=== PATIENT | female | born 2000 | race Two or more races ===

== ENCOUNTER 2018-10-13 11:50 | Observation (INO) | payer OTHER ==
[2018-10-13] MEDS ORDERED: PREN-96 PO (12:22)
== END 2018-10-13 14:05 | disposition home or self-care (01) | DRG 832 ==
LOC: LDRP 11:50
PROVIDERS: ADMIT Specialist; ATTEND Specialist
DX: O48.0 Post-term pregnancy (principal); O41.03X0 Oligohydramnios, third trimester, not applicable or unspecified; O00.01 Abdominal pregnancy with intrauterine pregnancy; Z3A.40 40 weeks gestation of pregnancy
CPT/HCPCS: 59025; 76818; 81002; G0378

== ENCOUNTER 2018-10-13 19:19 | Inpatient (IN) | payer SELFPAY ==
[~2018-10-13] VITALS: Ht 157.5 cm; Wt 61.7 kg
[~2018-10-13 19:19] MED LIST: PREN-96 PO
[2018-10-13] MEDS ORDERED: LACT. RINGERS/OXYTOCIN 20UNITS 1,000 ML IV SCH (19:29)
[2018-10-13] MEDS ORDERED: NALBUPHINE HCL 10 MG/1ml INJECTION IV PRN (19:30)
[2018-10-13] MEDS ORDERED: CARBOPROST TROMETHAMINE 250 MCG/1ML VIAL IM PRN (19:30)
[2018-10-13] MEDS ORDERED: METHYLERGONOVINE MALEATE 0.2 MG/ML AMP IM PRN (19:30)
[2018-10-13] MEDS ORDERED: LIDOCAINE 2%HCL (LOCAL ANESTH.) INJ 20ML MDV ID ONE (19:30)
[2018-10-13] MEDS ORDERED: PHISODERM TOP SOLN 240ML BTL TOP PRN (19:30)
[2018-10-13 20:19] LABS: Basophils # (auto) 0 uL; Basophils % (auto) 0.3 % (0.0-2.0); Eosinophils # (auto) 0 uL; Eosinophils % (auto) 0.6 % (0.0-7.0); Hematocrit 34.7 % (36.0-46.0); Hemoglobin 12.2 g/dL (12.2-16.2); Lymphocytes # (auto) 1.4 uL; Lymphocytes % (auto) 20.3 % (10.0-50.0); Mean Corpuscular Hemoglobin 33.1 pg (28.0-32.0); Mean Corpuscular Hgb Conc. 35.2 g/dL (32.0-36.0); Mean Corpuscular Volume 94.1 fL (80.0-100.0); Monocytes # (auto) 0.7 uL; Monocytes % (auto) 9.2 % (0.0-12.0); Neutrophils % (auto) 69.6 % (37.0-80.0); Nucleated Red Blood Cells % 0.1 %; Platelet Count (auto) 191 10^3/uL (140-450); Red Blood Cells 3.68 10^6/uL (4.0-5.20); White Blood Cell 7.1 10^3/uL (4.4-10.8)
[2018-10-13 20:22] LABS: Urine Bacteria NONE SEEN /hpf (None Seen); Urine Blood Negative /uL (Negative); Urine Mucus FEW (None Seen); Urine Specific Gravity 1.034 (1.001-1.035); Urine WBC 1 /hpf (0 - 5)
[2018-10-13 20:31] LABS: Alcohol, Urine < 3.0 mg/dL (0-5); Amphetamine Screen, Urine NEGATIVE (NEGATIVE); Barbiturate Scree,Urine NEGATIVE (NEGATIVE); Benzodiazephine Screen, Urine NEGATIVE (NEGATIVE); Cannabinoid Screen, Urine NEGATIVE (NEGATIVE); Cocaine Screen, Urine NEGATIVE (NEGATIVE); Opiate Scree,Urine NEGATIVE (NEGATIVE); Phencyclidine Screen, Urine NEGATIVE (NEGATIVE)
[2018-10-13 20:33] LABS: Albumin 2.8 g/dL (3.4-5.0); BUN/Creatinine Ratio 16.4; Calcium 8.5 mg/dL (8.5-10.1); INR 0.87 (0.9-1.15); Partial Thromboplastin Time 26.7 sec (23.78-33.04); Potassium 3.8 mmol/L (3.5-5.1); Prothrombin Time 9.4 sec (9.27-12.13)
[2018-10-13 20:35] LABS: Bilirubin, Total 0.2 mg/dL (0.2-1.0); Total Protein 6.5 g/dL (6.4-8.2)
[2018-10-13] MEDS: LACTATED RINGER'S 1,000 ML IV SCH (22:06)
[2018-10-14] MEDS ORDERED: BUTORPHANOL TARTRATE 2 MG/1 ML VIAL ONE (02:45)
[2018-10-14] MEDS: BUTORPHANOL TARTRATE 2 MG/1 ML VIAL IV PRN ×2 (02:47→09:49)
[2018-10-14] MEDS ORDERED: LACT. RINGERS/OXYTOCIN 20UNITS 1,000 ML IV SCH (07:35)
[2018-10-14] MEDS ORDERED: TERBUTALINE SULFATE 1 MG/ML 1ML VIAL SC PRN (07:45)
[2018-10-14] MEDS: LACTATED RINGER'S 1,000 ML IV SCH ×2 (08:19→13:07)
[2018-10-14] MEDS ORDERED: PROMETHAZINE HCL 25 MG/ML 1ML IV PRN (09:30)
[2018-10-14] MEDS: DERMOPLAST 60ML BOTTLE TOP PRN (09:59)
[2018-10-14] MEDS: WITCH HAZEL-GLYCERIN PAD TOP PRN (09:59)
[2018-10-14] MEDS ORDERED: LACTATED RINGER'S 1,000 ML IV ONE (12:17)
[2018-10-14] MEDS ORDERED: ePHEDrine SULFATE 50 MG/ML AMP IV ONE ×2 (12:30→13:30)
[2018-10-14] MEDS ORDERED: fentaNYL W ROPIVACAINE 150 ML EPI SCH ×2 (12:30→13:30)
[2018-10-14] MEDS ORDERED: SODIUM CHLORIDE 0.9% 500 ML IV PRN (13:24)
[2018-10-14] MEDS ORDERED: NALOXONE HCL 0.4 MG/ML VIAL IV ONE (13:30)
--- NOTE | 2018-10-14 17:05 | NUR ---
Ambulation: Patient OOB with standby assistance by RN. Patient ambulated to bathroom with steady gait. Patient able to void without difficulty. Pericare teaching provided with returned demonstration by patient. Clean gown provided and bed linen changed. Patient ambulated back to bed with steady gait and no distress noted.
[2018-10-14 17:36] VITALS: BP 130/78
--- NOTE | 2018-10-14 17:45 | NUR ---
Called Dr Pittman to report pt fever; orders received to give Tylenol 500 mg Q4 PRN; Ancef 1gm Q8. Orders will be carried out.
[2018-10-14] MEDS ORDERED: ACETAMINOPHEN 500 MG TAB PO PRN (18:00)
[2018-10-14] MEDS: ceFAZolin 1GM/50ML 50 ML IV SCH (18:02)
[2018-10-14 19:00] VITALS: BP 99/58
[2018-10-14] MEDS ORDERED: IBUPROFEN 600 MG TAB PO PRN (19:00)
[2018-10-14] MEDS: ACETAMINOPHEN 325 MG TAB PO PRN (20:13)
[2018-10-14 23:00] VITALS: BP 100/58
[2018-10-15] MEDS: DERMOPLAST 60ML BOTTLE TOP PRN (01:20)
[2018-10-15] MEDS: WITCH HAZEL-GLYCERIN PAD TOP PRN (01:20)
[2018-10-15] MEDS: ceFAZolin 1GM/50ML 50 ML IV SCH ×2 (01:21→10:16)
[2018-10-15] MEDS: ACETAMINOPHEN 325 MG TAB PO PRN (01:22)
[2018-10-15 03:00] VITALS: BP 101/55
[2018-10-15 04:06] LABS: RPR Non Reactive (Non Reactive)
[2018-10-15 07:19] VITALS: BP 101/62
[2018-10-15] MEDS ORDERED: DOCUSATE CALCIUM 240 MG CAP PO SCH (10:00)
[2018-10-15 11:39] VITALS: BP 98/56
--- NOTE | 2018-10-15 13:30 | NUR ---
Dr. Pittman updated on pt status, Vital signs reviewed, Informed that pt is requesting discontinuation of IV. Orders received to dc ancef order and dc IV per pt request.
[2018-10-15 15:00] VITALS: BP 100/69
--- NOTE | 2018-10-15 15:34 | NUR ---
IV DC'd catheter intact, pressure dressing applied and is clean and dry.
[2018-10-15] MEDS ORDERED: ceFAZolin 1GM/50ML 50 ML IV SCH (17:30)
[2018-10-15 19:00] VITALS: BP 116/74
[2018-10-15 23:30] VITALS: BP 121/79
[2018-10-16 03:20] VITALS: BP 123/74
[2018-10-16 06:55] VITALS: BP 108/70
[2018-10-16 10:32] VITALS: BP 109/60
--- NOTE | 2018-10-16 10:33 | NUR ---
Discharge: Discharge instructions given as ordered. Pt encouraged to follow up with [facility] as instructed. All questions and concerns addressed. Patient verbalized understanding. Medication reconciliation completed and copy given to patient. Patient encouraged to prepare to depart unit.
--- NOTE | 2018-10-16 10:45 | NUR ---
Discharge: Patient taken to vehicle via ambulated with all personal belongings, accompanied by staff and family member. No distress noted at time of departure, no adverse changes in status since initial assessment.
== END 2018-10-16 10:45 | disposition home or self-care (01) | DRG 806 ==
LOC: LDRP 19:19
PROVIDERS: ADMIT Specialist; ATTEND Specialist
PROC: 10E0XZZ Delivery of Products of Conception, External Approach (ICD-10-PCS; principal; 2018-10-14)
PROC: 0KQM0ZZ Repair Perineum Muscle, Open Approach (ICD-10-PCS; 2018-10-14)
PROC: 3E0R3BZ Introduction of Anesthetic Agent into Spinal Canal, Percutaneous Approach (ICD-10-PCS; 2018-10-14)
PROC: 00HU33Z Insertion of Infusion Device into Spinal Canal, Percutaneous Approach (ICD-10-PCS; 2018-10-14)
PROC: 10H07YZ Insertion of Other Device into Products of Conception, Via Natural or Artificial Opening (ICD-10-PCS; 2018-10-14)
DX: O77.0 Labor and delivery complicated by meconium in amniotic fluid (principal); O41.03X0 Oligohydramnios, third trimester, not applicable or unspecified; Z37.0 Single live birth; Z3A.40 40 weeks gestation of pregnancy; O70.1 Second degree perineal laceration during delivery
CPT/HCPCS: 36415; 51702; 59025; 59409; 62282; 80053; 80307; 81001; 81002; 85025; 85610; 85730; 86592; 86850; 86900; 86901; 96365; 96366; 96374; 96375; C1726; G0378; J0690; J2590; J3010

== ENCOUNTER 2020-02-09 19:10 | Emergency (ER) | payer SELFPAY ==
[~2020-02-09] VITALS: Ht 157.5 cm; Wt 52.2 kg
[2020-02-09 20:06] LABS: Basophils # (auto) 0 10 ^3/uL (0-0.2); Basophils % (auto) 0.4 % (0.0-2.0); Eosinophils # (auto) 0 10 ^3/uL (0-0.8); Eosinophils % (auto) 0.3 % (0.0-7.0); Hematocrit 44.1 % (36.0-46.0); Hemoglobin 15.3 g/dL (12.2-16.2); Lymphocytes # (auto) 1.9 10 ^3/uL (0.4-5.4); Lymphocytes % (auto) 19.4 % (10.0-50.0); Mean Corpuscular Hemoglobin 30.5 pg (28.0-32.0); Mean Corpuscular Hgb Conc. 34.7 g/dL (32.0-36.0); Mean Corpuscular Volume 87.9 fL (80.0-100.0); Monocytes # (auto) 0.5 10 ^3/uL (0-1.3); Monocytes % (auto) 4.6 % (0.0-12.0); Neutrophils # (auto) 7.5 10 ^3/uL (1.6-8.6); Neutrophils % (auto) 75.3 % (37.0-80.0); Platelet Count (auto) 278 10^3/uL (140-450); Red Blood Cells 5.02 10^6/uL (4.0-5.20); Red Cell Distribution Width 13.5 % (11.8-14.3)
[2020-02-09 20:20] LABS: Albumin 3.5 g/dL (3.4-5.0); Calcium 8.6 mg/dL (8.5-10.1); Potassium 3.8 mmol/L (3.5-5.1)
[2020-02-09 20:23] LABS: BUN/Creatinine Ratio 16.4; Bilirubin, Total 0.3 mg/dL (0.2-1.0); Total Protein 8.6 g/dL (6.4-8.2)
[2020-02-09 20:27] LABS: Urine Bacteria NONE SEEN /hpf (None Seen); Urine Blood 1+ /uL (Negative); Urine Mucus FEW (None Seen); Urine Specific Gravity 1.029 (1.001-1.035); Urine WBC 3 /hpf (0 - 5)
[2020-02-09 20:30] LABS: Partial Thromboplastin Time 28.5 sec (23.0-31.2)
[2020-02-09] MEDS ORDERED: IOHEXOL 300 MG/ML 100ML BOTTLE IJ ONE (21:44)
[2020-02-10 01:51] VITALS: BP 104/68
== END 2020-02-10 02:19 | disposition home or self-care (01) ==
LOC: ER 19:10
DX: K59.00 Constipation, unspecified (principal)
CPT/HCPCS: 36415; 74177; 76705; 80053; 81001; 81025; 85025; 85610; 85730; 99285; Q9967

== ENCOUNTER 2023-02-21 22:01 | Emergency (ER) | payer SELFPAY ==
[~2023-02-21] VITALS: Ht 154.9 cm; Wt 73.0 kg
[2023-02-21] MEDS ORDERED: ONDANSETRON ODT 4 MG TAB PO ONE (23:00)
[2023-02-21] MEDS ORDERED: MECLIZINE HCL 25 MG TAB PO ONE (23:00)
[2023-02-21 23:19] LABS: Basophils # (auto) 0.1 10 ^3/uL (0-0.2); Basophils % (auto) 0.5 % (0.0-2.0); Eosinophils # (auto) 0 10 ^3/uL (0-0.8); Eosinophils % (auto) 0.1 % (0.0-7.0); Hematocrit 43.3 % (36.0-46.0); Hemoglobin 15.3 g/dL (12.2-16.2); Lymphocytes # (auto) 2.7 10 ^3/uL (0.4-5.4); Lymphocytes % (auto) 23.6 % (10.0-50.0); Mean Corpuscular Hemoglobin 31.4 pg (28.0-32.0); Mean Corpuscular Hgb Conc. 35.3 g/dL (32.0-36.0); Monocytes # (auto) 0.6 10 ^3/uL (0-1.3); Neutrophils # (auto) 8.2 10 ^3/uL (1.6-8.6); Neutrophils % (auto) 70.8 % (37.0-80.0); Nucleated Red Blood Cells % 0.3 %; Red Blood Cells 4.87 10^6/uL (4.0-5.20); White Blood Cell 11.6 10^3/uL (4.4-10.8)
[2023-02-21 23:37] LABS: Urine Bacteria NONE SEEN /hpf (None Seen); Urine Blood 2+ /uL (Negative); Urine Clarity HAZY (Clear); Urine Color Yellow (Yellow); Urine Hyaline Cast FEW /lpf (0 - 2); Urine Mucus FEW (None Seen); Urine Protein, UAD TRACE (Negative); Urine Specific Gravity 1.031 (1.001-1.035); Urine WBC 10 /hpf (0 - 5); Urine pH 5.5 (5.0-8.0)
[2023-02-21 23:39] LABS: Alanine Aminotransferase 120 U/L (7-40); Alkaline Phosphatase 90 U/L (46-116); Anion Gap 9 (5-15); Aspartate Aminotransferase 40 U/L (13-40); BUN/Creatinine Ratio 12.4 (10.0-20.0); Bilirubin, Total 0.8 mg/dL (0.2-1.0); Blood Urea Nitrogen 11 mg/dL (9-23); Calcium 9.6 mg/dL (8.7-10.4); Carbon Dioxide 25 mmol/L (20-30); Chloride 102 mmol/L (98-107); Glucose 90 mg/dL (74-106); Potassium 3.9 mmol/L (3.5-5.1); Sodium 136 mmol/L (136-145); Total Protein 8.5 g/dL (5.7-8.2)
[2023-02-22 00:06] LABS: Rapid Influenza A Negative (Negative); Rapid Influenza B Negative (Negative)
[2023-02-22 00:07] LABS: COVID19 ANTIGEN SOFIA FIA NEGATIVE (NEGATIVE)
[2023-02-22] MEDS ORDERED: MECL1TAB42 PO (00:37)
[2023-02-22] MEDS ORDERED: ZOFR4T PO (00:37)
[2023-02-22] MEDS ORDERED: NITR-87 PO (00:37)
[2023-02-22 00:47] VITALS: BP 121/80; PULSE 90; RESP 17; TEMP 98; O2SAT 95
== END 2023-02-22 00:49 | disposition home or self-care (01) ==
LOC: ER 22:01
DX: N39.0 Urinary tract infection, site not specified (principal); R10.2 Pelvic and perineal pain; Z20.822 Contact with and (suspected) exposure to COVID-19
CPT/HCPCS: 36415; 80053; 81001; 81025; 82962; 84702; 85025; 87426; 87804; 99283; J8597; Q0162